=== PATIENT | male | born 1980 | race Two or more races ===

== ENCOUNTER 2018-09-26 16:14 | Emergency (ER) | payer SELFPAY ==
[~2018-09-26] VITALS: Ht 172.7 cm; Wt 77.1 kg
[2018-09-26 17:10] VITALS: BP 130/72
--- NOTE | 2018-09-26 17:13 | NUR ---
ED Nurse Note: Patient LASHAY RA #[id number] from a parking lot due to ETOH. Pt. denies pain and Per EMS CM=[id number]. Pt. was found in his truck sleeping. skin is intact. pt ambulatory with unsteady gait. pt. is awake upon ER arrival and is on the phone with someone
--- NOTE | 2018-09-26 17:15 | NUR ---
ED Nurse Note: Pt. is currently doing abs workout on the bed.
[2018-09-26 17:48] VITALS: BP 124/65
--- NOTE | 2018-09-26 17:49 | NUR ---
ED Nurse Note: Pt. AAOx4. ambulatory. left with his friend Adrian. pt did not sign his papers
--- NOTE | 2018-09-28 06:48 | Emergency Room Report ---
History of Present Illness General Chief Complaint: Alcohol Intoxication Source: Patient Present Illness HPI 37-year-old male presents ED for evaluation. Brought in by EMS status post EtOH intoxication. Found sleeping in his truck today. Upon arrival patient is awake and alert. Admits to drinking alcohol. Denies driving while drunk. Denies any drug use. Denies any pain. Denies any nausea or vomiting. No other aggravating relieving factors. Denies any other associated symptoms Allergies: Coded Allergies: No Known Allergies (Unverified , 09/26/18) Patient History Past Medical History: none Past Surgical History: none Pertinent Family History: none Social History: Denies: smoking, alcohol use, drug use Immunizations: UTD Reviewed Nursing Documentation: PMH: Agreed; PSxH: Agreed Nursing Documentation-PMH Past Medical History: No Stated History Review of Systems All Other Systems: negative except mentioned in HPI Physical Exam Vital Signs Date Time Temp Pulse Resp B/P (MAP) Pulse Ox O2 Delivery O2 Flow Rate FiO2 09/26/18 16:06 98.6 82 15 128/70 99 Room Air Sp02 EP Interpretation: reviewed, normal General Appearance: no apparent distress, GCS 15, non-toxic, other - intoxicated Head: normocephalic, atraumatic Eyes: bilateral eye normal inspection, bilateral eye PERRL ENT: hearing grossly normal, normal pharynx, no angioedema, normal voice Neck: full range of motion, supple/symm/no masses Respiratory: chest non-tender, lungs clear, normal breath sounds, speaking full sentences Cardiovascular #1: regular rate, rhythm, no edema Cardiovascular #2: 2+ carotid (R), 2+ carotid (L), 2+ radial (R), 2+ radial (L) , 2+ dorsalis pedis (R), 2+ dorsalis pedis (L) Gastrointestinal: normal bowel sounds, non tender, soft, non-distended, no guarding, no rebound Rectal: deferred Genitourinary: normal inspection, no CVA tenderness Musculoskeletal: back normal, gait/station normal, normal range of motion, non- tender Neurologic: alert, oriented x3, responsive, motor strength/tone normal, sensory intact, speech normal, other - intoxicated Psychiatric: memory normal, mood/affect normal, no suicidal/homicidal ideation , other - intoxicated Reflexes: 3+ bicep (R), 3+ bicep (L), 3+ tricep (R), 3+ tricep (L), 3+ knee (R) , 3+ knee (L) Skin: normal color, no rash, warm/dry, well hydrated Lymphatic: no adenopathy Medical Decision Making Diagnostic Impression: Primary Impression: Acute alcoholic intoxication Qualified Codes: F10.929 - Alcohol use, unspecified with intoxication, unspecified ER Course Hospital Course 37-year-old male presents to ED status post EtOH intoxication. Clinical course Patient placed on stretcher. Given that patient is able to provide an adequate history, I see no need to check blood work or place an IV. Patient allowed to sleep. My assessment shows no evidence of SI/HI requiring psychiatric evaluation. Patient allowed to rest in now awake alert oriented x3. ambulating without difficulty. Safe for discharge for close outpatient follow-up. States he has PMD. Declined counseling services Diagnosis - ETOH intoxication stable and discharged to home. Followup with PMD. Return to ED if symptoms recur or worsen Last Vital Signs Date Time Temp Pulse Resp B/P (MAP) Pulse Ox O2 Delivery O2 Flow Rate FiO2 09/26/18 17:48 97.8 80 16 124/65 100 Room Air Status: improved Disposition: HOME, SELF-CARE Condition: Stable Referrals: NOT CHOSEN IPA/,REFERRING (PCP) Patient Instructions: Alcohol Intoxication Pj Reeder MD Sep 28, 2018 06:48
== END 2018-09-26 17:51 | disposition home or self-care (01) ==
LOC: EDBD 16:14 → EMR 16:45
DX: F10.129 Alcohol abuse with intoxication, unspecified (principal)
CPT/HCPCS: 99283